=== PATIENT | female | born 1960 | race Caucasian/White ===

== ENCOUNTER 2022-03-09 08:40 | Outpatient (CLI) | payer BC, SELFPAY ==
--- NOTE | 2022-03-09 10:02 | W.ANESCHARGE ---
Anesthesia Charges Start Date/Time Anesthesia Start Date: 03/09/22 Anesthesia Start Time: 09:30 Stop Date/Time Anesthesia Stop Date: 03/09/22 Anesthesia Stop Time: 09:58 Summary Emergency: No
--- NOTE | 2022-03-09 10:22 | W.ANESCHARGE ---
Anesthesia Charges Start Date/Time Anesthesia Start Date: 03/09/22 Anesthesia Start Time: 09:30 Stop Date/Time Anesthesia Stop Date: 03/09/22 Anesthesia Stop Time: 09:58 Summary Emergency: No
== END 2022-03-09 08:41 | disposition home or self-care (01) ==
LOC: OP CLINIC 08:42
PROVIDERS: PCP Family Medicine; Visit Provider Internal Medicine Gastroenterology
DX: Z12.11 Encounter for screening for malignant neoplasm of colon (principal); K63.5 Polyp of colon; Q43.8 Other specified congenital malformations of intestine; Z83.71 Family history of colonic polyps; Z86.010 Personal history of colon polyps
CPT/HCPCS: 00811; 45380; 45385; 88305; J2704

== ENCOUNTER 2022-05-07 08:22 | Inpatient (IN) | payer BC, SELFPAY ==
[2022-05-07] VITALS (33 sets, daily range): BP systolic 100–128; BP diastolic 57–85; PULSE 79–102; RESP 12–98; TEMP 36.4–37.1; O2SAT 92–99; BMI 40.1
[2022-05-07] MEDS: SODIUM CHLORIDE 0.9 % (FLUSH) 10 ML SYRINGE IVF (09:00)
[2022-05-07] MEDS: LACTATED RINGERS 1000 ML 1,000 ML 100 ML IV ×2 (09:00→19:30)
[2022-05-07 09:10] LABS: Hemoglobin* 14.2 gm/dL (12.0-16.0)
[2022-05-07 09:32] LABS: SARS PCR* Negative SARS-CoV-2 (Negative)
[2022-05-07] MEDS: SCOPOLAMINE 1 MG/3 DAY PATCH 1 PATCH TRANSDERMA (09:40)
[2022-05-07 09:47] LABS: Creatinine* 0.8 mg/dL (0.5-1.5); Est. Creatinine Clearance* 53.16; Estimated Glomerular Filt Rate 84 ml/min
--- NOTE | 2022-05-07 14:00 | W.ANESCHARGE ---
Anesthesia Charges Start Date/Time Anesthesia Start Date: 05/07/22 Anesthesia Start Time: 10:18 Stop Date/Time Anesthesia Stop Date: 05/07/22 Anesthesia Stop Time: 15:05 Summary Emergency: No
--- NOTE | 2022-05-07 15:02 | PM.GYNPRHY ---
Procedure Type of Hysterectomy: Total Laparoscopic Pre-op/Post-op diagnoses: Pre-Op/Post-Op Diagnoses Operation Date: 05/07/22 10:00 <No data on this case meets the specified criteria> Procedure: Procedures Operation Date: 05/07/22 10:00 Actual Procedure Side Surgeon p Laparoscopic hysterectomy, bilateral salpingo-oopherectomy, Cystoscopy Key Guaman MD s Excision of Lesion, mole, left labia Key Guaman MD Handstitching Machine Collar Feller: Lizzie Yarbrough Estimated blood loss (mL): 50 Anesthesia type: General Complications: none Fluids: crystalloid Urine output (mL): 200 Specimen: uterus, left tube & ovary, right tube & ovary and other (Left labial mole ) Narrative: DATE: 05/07/2022 Consent reviewed with the patient in preop: I reviewed that I would recommend doing a total laparoscopic hysterectomy with bilateral salpingo-oophorectomy in her case given her postmenopausal status. I reviewed how a total laparoscopic hysterectomy and bilateral salpingectomy are performed. Risks associated with this procedure include: Hemorrhage to the point of requiring transfusion less than 1%, infection of incisions, vaginal cuff or abdomen 1%, risk of injury to organs that are adjacent to the uterus such as bladder, bowel, blood vessels, nerves or ureters 1%. She would not require medroxyprogesterone as part of hormone therapy after hysterectomy as there would be no need for endometrial protection. I also reviewed her increased risk of needing an open hysterectomy given her extensive surgical history. I reviewed activity restrictions post surgery: No lifting anything greater than 20 lb for at least 2 weeks, walking and walking up and down stairs safe starting postop day 1., no more strenuous activity than walking for at least the 1st 2 weeks, no driving while taking narcotic pain medication approximately 1 week postop, nothing vaginally for 6 weeks postop: No intercourse or tampons. We discussed with Anesthesia team about slow inflation of the abdomen given her history of cardiac arrest during a knee replacement surgery. PREOPERATIVE DIAGNOSIS: 61-year-old with abnormal uterine bleeding, pelvic pain and intrauterine polyp POSTOPERATIVE DIAGNOSIS: Same with the additional findings of fibroid uterus NAME OF PROCEDURE: Total abdominal hysterectomy. Bilateral salpingo-oopherectomy, cystoscopy, and left labial mole removal. SURGEON: Key Guaman MD INDUSTRIAL PHOTOGRAPHER: Lizzie Yarbrough MD. ANESTHESIA: General endotracheal. Local COMPLICATIONS: None ESTIMATED BLOOD LOSS: 50 ml URINE OUTPUT: 200 mL clear urine at the end of the procedure IV FLUID: 1.5 mL DRAINS: Rivera to gravity. Specimen: Bilateral fallopian tube and ovaries and uterus. Left labial mole. Uterus weight: pending pathology FINDINGS: Pelvic exam: Mons normal, clitoris normal, urethral meatus normal. Left Labia minora and majora normal in appearance. Right labia major with 1.5 cauliflower mole at inferior aspect near buttock. Labia minora normal. Perineum and anus normal appearance. Vaginal introitus normal appearance. Vaginal pink and well rugated with scant white discharge. Cervix pink and without lesion. Bimanual exam reveals at least one posterior fibroid uterus, mobile, anteverted. 10 week size uterus. No palpable adnexal masses or tenderness. Laparoscopic findings: Minimal filmy adhesions of descending colon to left sidewall. Fibroid uterus. 3 fibroids noted protruding from left broad ligament anteriorly. 1 large fibroid at uterine fundus. Another large fibroid on posterior aspect of uterus close to the broad ligament. Normal-appearing fallopian tubes and ovaries bilaterally. Liver appeared normal. Procedure: Tesha was taken to the operating room where general anesthetic was found to be adequate. She was placed in the dorsal lithotomy position and an exam under anesthesia was performed with findings stated above. She was then prepped and draped in a normal sterile manner. A Rivera catheter was placed. A bivalve speculum was placed in the vaginal canal. A long Allis clamp was placed on the anterior lip of the cervix, in the uterus sounded to 7 cm. A medium VCare uterine manipulator was then placed. The Allis clamp and speculum were removed from the cervix. Attention was then turned to performing the laparoscopic portion of the procedure. All incisions were infiltrated with 0.25% bupivacaine prior to incising the skin. A vertical, infraumbilical 1 cm incision was made. An 5mm trocar was then placed under direct visualization. The abdomen was then insufflated with CO2 gas to a pressure of 15 mm of mercury under slow flow. Three additional port sites were created. The 1st was in the patient's left lower quadrant, just superior medial to the left ASIS. The 2nd was a hand's breath superior to and slightly medial to the 1st. The 3rd was in the patient's right lower quadrant, just superior medial to the right ASIS. The balloon on each of the 4 ports was inflated, holding each in place.The trocar in the RLQ = 5mm, LLq = 11mm, Left midport = 5 mm. These were placed under direct visualization. Attention was then turned to performing the hysterectomy and bilateral salpingo-oophorectomy. The left fallopian tube and ovary was grasped and removed with sequential pedicles using the dissecting, ligasure blunt tip dissecting forceps until it was free from the infundibulopelvic ligament. The left side of the hysterectomy was performed using the ligasure dissecting forceps. The 1st pedicles were starting with the broad ligament that was cauterized and and bisected. Then sequential pedicles were made through the broad ligament. The anterior leaf of the broad ligament was then divided and sequential pedicles carried down to the level of the VCare cup and a bladder flap was made. The uterine vessels were then skeletonized. The uterine vessels were then cauterized and divided. Then excess tissue was cleared over the top of the VCare cup using the dissecting forceps. The right salpingo-oophorectomy and right side of the hysterectomy were then performed in a similar manner. The Ligasure Valleylab pen with the spatula attachment was then used to perform the colpotomy incising around the VCare cup. The uterus was removed and the fundus placed in the vaginal canal to maintain insufflation. The vaginal cuff was then reapproximated using 0 vicryl figure of 8. Three were placed laparoscopically. All the pedicles and vaginal cuff were then closely visualized and hemostasis obtained with bipolar cautery using the ligasure dissecting forceps or the Valleylab pen with the spatula. The the uterus was removed from the vaginal canal and sent to pathology. After assessment of vaginal cuff, 2 extra figure of 8 were placed vaginally on bilateral angles for reinforcement. The Rivera catheter was briefly removed. A diagnostic cystoscopy was performed using normal saline as the insufflation medium. The dome of the bladder was noted to be without injury and no evidence of any sutures from the vaginal cuff causing injury. Small amount of bruising at base of bladder. Normal urine flow was noted through both ureteral orifices. Fluorescein IV was used to visualize the urine more easily. The Rivera catheter was then replaced. Attention was then returned to the abdomen where hemostasis was verified again after vaginal cuff stitches were placed. The CO2 pressure decreased to 8mmHG and excellent hemostasis verified. The fascia in the LLQ incision was approximated with 0-Vicryl suture using the Noe Schultz fascial closure device. This was closed under direct visualization with the laparoscope. All trocars were removed under direct visualization. CO2 gas was allowed to escape the infraumbilical port prior to its removal. Removal of labial mole incision done by Dr. Yarbrough without scalpel to the base of the mole. Skin reappropriated with 4-0 monocryl without issues. All skin incisions were re-approximated using 4-0 Monocryl in a running subcuticular manner, Exophin skin adhesive gel and adhesive bandages placed. The patient tolerated this procedure well. Sponge, lap and instrument counts were correct x2 at the end of the procedure and the patient was taken to the recovery area in stable condition. The patient received 2gm IV ancef prior to the start of the procedure.
--- NOTE | 2022-05-07 15:12 | W.ANESCHARGE ---
Anesthesia Charges Start Date/Time Anesthesia Start Date: 05/07/22 Anesthesia Start Time: 10:18 Stop Date/Time Anesthesia Stop Date: 05/07/22 Anesthesia Stop Time: 15:05 Summary Emergency: No
--- NOTE | 2022-05-07 15:15 | W.PM.NB ---
Nerve Block Nerve Block Time Seen by Provider: 10:25 Date Seen: 05/07/22 Type of block requested by surgeon for post-operative analgesia: TAP Side: bilateral Time out performed: Yes Verification of patient name: Yes Verification of date of : Yes Site marking: site marked Name of person performing procedure: Juno Continuous monitoring Was continuous monitoring of O2 sat, B/P, cardiac catheterization technician, recorded every 15 minutes?: Yes Procedure Checklist: sterile prep, needles and gloves Ultrasound guided. Images saved: Yes Medications given in 5ml increments after negative aspiration: Marcaine %: 0.25 mL: 30 Needle gauge: 20 and Exparel mL: 10 Patient tolerated procedure well: Yes Additional comments: Needle noted adjacent to nerve Block Charges Block Charge (with Pro Fee): TAP Bilateral Use of Ultrasound Machine for Block: Yes- US Guidance/pain block
[2022-05-07] MEDS: HYDROmorphone 0.5 mg/0.5 ml inj IVP ×3 (15:33→22:51)
[2022-05-07] MEDS: diphenhydrAMINE 50 MG/ML inj 25 MG IVP ×2 (16:40→20:46)
[2022-05-07] MEDS: SUMAtriptan succinate 50 MG TABLET 100 MG PO (17:37)
[2022-05-07 18:26] LABS: Hemoglobin* 13.1 gm/dL (12.0-16.0)
[2022-05-07] MEDS: fentaNYL 100 MCG/2 ML inj 50 MCG IVP (19:35)
--- NOTE | 2022-05-07 19:47 | PM.OBLDTN ---
OB - Triage/Final Diagnosis Visit Information Time Seen by Provider: 19:48 Date Seen: 05/07/22 Date of evaluation: 05/07/22 Narrative: Tesha is a [] year old [] para [] at [] weeks gestation by [], who presents with []. [] Evaluation Laboratory results: Laboratory Tests 05/07/22 05/07/22 05/07/22 Range/Units 18:22 09:03 09:03 Hgb 13.1 (12.0-16.0) gm/dL Creatinine 0.8 (0.5-1.5) mg/dL Estimated Creat Clear 53.16 Estimated GFR 84 ml/min SARS-CoV-2 (PCR) (Negative) Blood Type O Negative Antibody Screen NEGATIVE 05/07/22 05/07/22 Range/Units 09:03 08:25 Hgb 14.2 (12.0-16.0) gm/dL Creatinine (0.5-1.5) mg/dL Estimated Creat Clear Estimated GFR ml/min SARS-CoV-2 (PCR) Negative SARS-CoV-2 (Negative) Blood Type Antibody Screen Vital signs: Vital Signs - 24 hr 05/07/22 09:14 05/07/22 15:03 05/07/22 15:12 Temperature 97.9 F 98.8 F 97.6 F Pulse Rate 102 H 91 84 Pulse Rate [Pulse Oximeter] Respiratory Rate 18 14 12 Blood Pressure 122/85 103/58 L Blood Pressure [Left Arm] Pulse Oximetry 95 95 98 Oxygen Delivery Method Room Air [place] Nasal Cannula 05/07/22 15:02 05/07/22 15:04 05/07/22 15:06 Temperature Pulse Rate 98 87 83 Pulse Rate [Pulse Oximeter] Respiratory Rate Blood Pressure Blood Pressure [Left Arm] Pulse Oximetry 95 95 97 Oxygen Delivery Method 05/07/22 15:07 05/07/22 15:09 05/07/22 15:10 Temperature Pulse Rate 82 80 85 Pulse Rate [Pulse Oximeter] Respiratory Rate Blood Pressure 112/57 L Blood Pressure [Left Arm] Pulse Oximetry 97 98 98 Oxygen Delivery Method 05/07/22 15:11 05/07/22 15:13 05/07/22 15:34 Temperature 98.1 F Pulse Rate 79 79 Pulse Rate [Pulse Oximeter] Respiratory Rate Blood Pressure 103/58 L Blood Pressure [Left Arm] Pulse Oximetry 98 98 Oxygen Delivery Method 05/07/22 15:14 05/07/22 15:17 05/07/22 15:17 Temperature Pulse Rate 88 91 82 Pulse Rate [Pulse Oximeter] Respiratory Rate Blood Pressure 122/67 Blood Pressure [Left Arm] Pulse Oximetry 98 98 98 Oxygen Delivery Method 05/07/22 15:18 05/07/22 15:21 05/07/22 15:21 Temperature Pulse Rate 88 92 94 Pulse Rate [Pulse Oximeter] Respiratory Rate Blood Pressure 127/59 L Blood Pressure [Left Arm] Pulse Oximetry 98 99 98 Oxygen Delivery Method 05/07/22 15:22 05/07/22 15:25 05/07/22 15:26 Temperature Pulse Rate 81 85 84 Pulse Rate [Pulse Oximeter] Respiratory Rate Blood Pressure 112/57 L Blood Pressure [Left Arm] Pulse Oximetry 99 98 96 Oxygen Delivery Method 05/07/22 15:27 05/07/22 15:29 05/07/22 15:30 Temperature Pulse Rate 93 83 93 Pulse Rate [Pulse Oximeter] Respiratory Rate Blood Pressure Blood Pressure [Left Arm] Pulse Oximetry 93 95 94 Oxygen Delivery Method 05/07/22 15:31 05/07/22 15:33 05/07/22 15:34 Temperature Pulse Rate 89 87 87 Pulse Rate [Pulse Oximeter] Respiratory Rate Blood Pressure 120/61 Blood Pressure [Left Arm] Pulse Oximetry 95 94 96 Oxygen Delivery Method 05/07/22 15:52 05/07/22 16:16 05/07/22 16:18 Temperature 98.2 F 98.2 F 98.2 F Pulse Rate 87 Pulse Rate [Pulse Oximeter] 88 88 Respiratory Rate 14 14 14 Blood Pressure Blood Pressure [Left Arm] 106/71 106/71 106/71 Pulse Oximetry 94 94 Oxygen Delivery Method Room Air Room Air Room Air 05/07/22 16:07 05/07/22 16:22 05/07/22 16:37 Temperature 98.2 F 98.0 F Pulse Rate Pulse Rate [Pulse Oximeter] 79 84 86 Respiratory Rate 12 14 98 H Blood Pressure Blood Pressure [Left Arm] 108/70 106/71 118/79 Pulse Oximetry 97 92 92 Oxygen Delivery Method Room Air Room Air Room Air 05/07/22 17:07 05/07/22 17:38 Temperature 98.0 F 98.1 F Pulse Rate Pulse Rate [Pulse Oximeter] 86 79 Respiratory Rate 16 16 Blood Pressure Blood Pressure [Left Arm] 116/75 100/66 Pulse Oximetry 95 96 Oxygen Delivery Method Room Air Room Air
[2022-05-08] MEDS: HYDROmorphone 2 MG TABLET PO ×3 (03:13→13:06)
[2022-05-08 04:00] VITALS: BP 111/70; PULSE 104; RESP 16; TEMP 36.7; O2SAT 95
[2022-05-08] MEDS: diphenhydrAMINE 50 MG/ML inj 25 MG IVP ×2 (06:33→13:05)
[2022-05-08] MEDS: fentaNYL 100 MCG/2 ML inj 50 MCG IVP (06:34)
[2022-05-08] MEDS: SODIUM CHLORIDE 0.9 % (FLUSH) 10 ML SYRINGE IVF (06:49)
[2022-05-08] MEDS: METOPROLOL SUCCINATE (XL) 50 MG TAB PO (08:14)
[2022-05-08] MEDS: DULOXETINE HCL 20 MG CAPSULE DR PO (08:15)
[2022-05-08 08:22] VITALS: BP 105/62; PULSE 101; RESP 20; TEMP 37.1; O2SAT 92
[2022-05-08] MEDS: ACETAMINOPHEN 325 MG TABLET 650 MG PO ×3 (09:01→21:05)
[2022-05-08] MEDS: SUMAtriptan succinate 50 MG TABLET 100 MG PO (09:23)
[2022-05-08] MEDS: IBUPROFEN 200 MG TABLET 800 MG PO ×3 (10:23→23:18)
[2022-05-08 12:52] VITALS: BP 105/65; PULSE 92; RESP 20; TEMP 37.1; O2SAT 95
--- NOTE | 2022-05-08 15:45 | PM.GYNPNPO ---
BOX [employer]ING [employer]ER - A/P Assessment and plan (1) Postmenopausal bleeding: Problem details: S/p EMBx on 02/10/2022: Endocervical polyp. Negative for hyperplasia, atypia, and malignancy Status: Acute (2) S/P total hysterectomy and bilateral salpingo-oophorectomy: Status: Acute Plan Postoperative Review: - Admitted for: s/p surgery - Surgical procedure: Total laparoscopic abdominal hysterectomy.? Bilateral salpingo-oophorectomy, cystoscopy, and left labial mole removal.? - Skin incision: 4 laparoscopic port sites - Closure: sutures - Estimated blood loss: 50 mL - Intraoperative Complications: none - Urine output: adequate. Voiding several times without christianson cath - Preop Hgb: 14.2 - Postop Hgb: 13.1 Postoperative care: - Diet: Advance as tolerated - Fluid: Encourage oral intake - Activity: Encourage ambulation due to prevention of ileus. Patient had hypoactive bowel sounds.Incentive spirometry - Pain: Ibuprofen, Tylenol, gabapentin, and Dilaudid - DVT prophylaxis: SCDs when not ambulating Dispo: Patient is POD#1. Need the following milestones: ambulating more. Patient is fatigued today and desires to stay another night as she was struggling with pain control today. We discussed importance of ambulation to decrease ileus and postop pain, especially since she's had narcotics. Anticipate discharge POD#2. Postoperative Procedures: Procedures Operation Date: 05/07/22 10:00 Actual Procedure Side Surgeon p Laparoscopic hysterectomy, bilateral salpingo-oopherectomy, Cystoscopy Key Guaman MD s Excision of Lesion, mole, left labia Key Guaman MD Postoperative day: 1 Time Spent With Patient Time: Total time spent is greater than 50% in coordination of care (as documented) at patient's floor/unit and/or counseling patient: Time with patient: less than 15 minutes [employer]OX [employer]ING [employer]- PN:Subj Post-Op Subjective Time Seen by Provider: 08:00 Date Seen: 05/08/22 Post Operative Details: Post-operative day number 1: status post total laparoscopic abdominal hysterectomy, bilateral salpingo-oopherectomy, cystoscopy, and left labial mole removal.? Overnight patient had increased pain. Her pain was not well controlled on oral pain medications. She need IV dilaudid x3 overnight along with her PO regimen. Her pain is localized to left lower quadrant port (the 11 mm port). Improved with ice pack. She is tolerating a regular diet. She has passed flatus. She is not yet ambulating without difficulty. Vaginal bleeding is scant. She is urinating without a christianson. Patient denies chest pain, SOB, n/v, or dizziness. [employer]ING [employer]KER-PN: Obj Exam Physical Exam: Vital signs: Temp Pulse Resp BP Pulse Ox O2 Del Method 98.8 F 92 20 105/65 95 05/08/22 12:52 05/08/22 12:52 05/08/22 12:52 05/08/22 12:52 05/08/22 12:52 05/08/22 12:52 Narrative: VITAL SIGNS: wnl GENERAL: Pleasant woman in no acute distress. PSYCHIATRIC: Alert and oriented x3. Normal speech pattern and affect. HEART: Regular rate and rhythm. LUNGS: Clear to auscultation bilaterally. ABDOMEN: Soft, appropriately tender (most prominent at LLQ port site), no guarding and nondistended with hypoactive bowel sounds throughout. INCISION(S): All clean, dry and intact. The skin adhesive gel is partially removed. No evidence of erythema, induration, skin separation or hernia. PELVIC: Deferred. EXTREMITIES: Without cyanosis, clubbing, or edema. NEUROLOGIC: Grossly intact Urinary Catheter Management: Christianson: Cath placed during this visit: yes Urethral indwelling: No Insertion date: 05/07/22 Insertion time: 10:40 [employer]ING [employer]ER - PN: Obj Data Labs Labs: Laboratory Results - last 24 hr 05/07/22 18:22 Hgb 13.1
[2022-05-08 16:55] VITALS: BP 97/66; PULSE 71; RESP 18; TEMP 36.7; O2SAT 92
[2022-05-08 17:19] VITALS: PULSE 71; RESP 18
[2022-05-08 21:07] VITALS: BP 99/63; PULSE 79; RESP 16; TEMP 37; O2SAT 91
[2022-05-09 01:02] VITALS: BP 100/65; PULSE 69; PULSE 75; RESP 16; TEMP 37; O2SAT 95
[2022-05-09] MEDS: ACETAMINOPHEN 325 MG TABLET 650 MG PO ×2 (01:04→07:38)
[2022-05-09] MEDS: IBUPROFEN 200 MG TABLET 800 MG PO (05:44)
[2022-05-09 05:48] VITALS: BP 116/72; PULSE 69; RESP 16; TEMP 37; O2SAT 95
[2022-05-09] MEDS: DULOXETINE HCL 20 MG CAPSULE DR PO (07:38)
[2022-05-09] MEDS: METOPROLOL SUCCINATE (XL) 50 MG TAB PO (07:40)
[2022-05-09] MEDS: MEDROXYPROGESTERONE 5 MG TABLET 10 MG PO (07:40)
[2022-05-09 07:44] VITALS: PULSE 69; RESP 16
[2022-05-09 07:47] VITALS: BP 116/75; PULSE 70; RESP 16; TEMP 36.4; O2SAT 94
--- NOTE | 2022-05-09 10:00 | P.DS_ITS ---
DS: Providers Provider Date Seen: 05/09/22 Date of admission: 05/07/22 08:22 Primary care physician: Abhilash Parker MD Admitting Clinician: Key Guaman MD Attending Physician on discharge: Maira Veronica MD DS: Diagnosis Discharge Diagnosis (1) S/P total hysterectomy and bilateral salpingo-oophorectomy: Status: Acute (2) Uterine fibroid: Status: Acute Problem details: Worsening pelvic pain and pressure [employer]ENER-Discharge Summary Hospital Course Hospital Course Narrative: Hospital Course: Tesha was admitted to the hospital on 05/07/2022 for a scheduled total laparoscopic hysterectomy, bilateral salpingo oophorectomy and diagnostic cystoscopy. Her surgery was uncomplicated. Her postoperative course was complicated by difficulty with pain control. By postoperative day 2, she was tolerating a regular diet, ambulating with some difficulty due to pain, passing flatus and pain was well controlled with oral pain medications. She would like to be discharged home today. Labs: Preoperative hemoglobin 14.2, postoperative hemoglobin 13.1. Objective: General: Alert and oriented x3. Pleasant, woman in no acute distress. Vital signs: See EMR. Heart: Regular rate and rhythm without gallop, rub or murmur. Chest: Clear to auscultation bilaterally. Abdomen: Soft, nontender, nondistended with normal bowel sounds throughout. No CVA or flank tenderness. Incision(s): Clean, dry and intact w/ sutures and skin adhesive. Pelvic: Minimal vaginal bleeding, remainder of pelvic exam deferred. Extremities: No pain, edema, cyanosis or clubbing. Assessment: 61-year-old postoperative day to from a [facility]/BSO/diagnostic cystoscopy doing well. Plan: 1. Discharge home today. 2. Activity restrictions reviewed with the patient. 3. Return to clinic to see Dr. Guaman for a postoperative visit in 2-3 weeks. Time Spent with Patient Time attestation: Total time spent providing and/or coordinating discharge services: [employer]ENER - Exam Physical Exam: Vital signs: Temp Pulse Resp BP Pulse Ox O2 Del Method 97.6 F 70 16 116/75 94 05/09/22 07:47 05/09/22 07:47 05/09/22 07:47 05/09/22 07:47 05/09/22 07:47 05/09/22 07:47 J[employer]ENER - DS: Data Procedures Procedures: Procedures Operation Date: 05/07/22 10:00 Actual Procedure Side Surgeon p Laparoscopic hysterectomy, bilateral salpingo-oopherectomy, Cystoscopy Key Guaman MD s Excision of Lesion, mole, left labia Key Guaman MD Complications: none Discharge Plan Discharge Disposition: Home, Self-Care Date of Admission: 05/07/22 08:22 Attending Provider on Discharge[facility] Primary Care Provider: Abhilash Parker Condition: Stable Anticipated Discharge Date/Time: 05/09/22 12:00 Discharge Medications: New ibuprofen 800 mg tablet 800 mg PO Q6H PRN (Reason: pain) Qty: 60 2RF acetaminophen [Tylenol Extra Strength] 500 mg tablet 500 mg PO Q6H PRNQty: 60 1RF hydromorphone [Dilaudid] 2 mg tablet 2 mg PO Q6H PRN (Reason: pain) Qty: 20 0RF Rx Instructions: Postop pain simethicone [Gas Relief (simethicone)] 80 mg tablet,chewable 80 mg PO TID-QID PRN (Reason: abdominal distention) Qty: 60 1RF senna 8.6 mg capsule 8.6 mg PO DAILY Qty: 30 0RF Continued duloxetine 20 mg capsule,delayed release(DR/EC) 20 mg PO DAILY meloxicam 15 mg tablet PO DAILY sennosides 8.6 mg tablet 8.6 mg PO sumatriptan succinate 100 mg tablet 100 mg PO ONCE estradiol 0.075 mg/24 hr patch semiweekly 1 patch transdermal 2XW Rx Instructions: apply 1 patch for 3 days alternating with 1 patch for 4 days each week for 3 wks per 4-wk cycle cholecalciferol (vitamin D3) 125 mcg (5,000 unit) capsule 125 mcg PO QDAY diphenhydramine-acetaminophen 25-500 mg capsule PO .hs vitamin B complex [B Complex-Vitamin B12] Tablet 1 tab PO QDAY fish oil-dha-epa 1,200-144-216 mg capsule PO DAILY Rx Instructions: 3,600 mg fish oil ondansetron 4 mg tablet,disintegrating 4 mg PO Q8H metoprolol succinate 50 mg tablet extended release 24 hr 50 mg PO Q24H omeprazole 40 mg capsule,delayed release(DR/EC) 40 mg PO DAILY Discontinued omeprazole 20 mg tablet,delayed release (DR/EC) PO DAILY tramadol 50 mg tablet 50 mg PO PRN Label Comments: patient states that this is the only med for this that doesn't give her reaction. medroxyprogesterone 10 mg tablet 10 mg PO QDAY diphenhydramine-acetaminophen 12.5-500 mg tablet 1 tab PO Q6H PRN Discharge Orders: Discharge Order (Routine); Ordered 05/09/22 Ordered By: Maira Veronica Patient Education: Laparoscopic Hysterectomy (DC) Additional Instructions: Discharge instructions were reviewed with the patient including signs and symptoms of infection and home going medications ACTIVITY RESTRICTIONS Lifting Restriction: 20 pounds for 4 weeks No not submerge incision under water X 2 weeks? Nothing vaginally for 6 weeks: no tampons or intercourse Do not drive while taking narcotic pain medication(s): 7-10 days Off Work: 3-4 weeks Strenuous, core or high-impact exercise: None for 4 weeks NO restriction on walking or walking up and down stairs. Symptoms to report to doctor: * Bright red bleeding that requires a panty liner or more * Pain not relieved by prescribed medication * Fever above 100.4 degrees Fahrenheit * A foul vaginal odor * Difficulty in emotions, mood, and functions * Decrease in urination or painful, frequent urinating * Chest pain * Shortness of breath * Tenderness or pain with redness and/swelling in the calf(s) of your leg * Redness, drainage or skin separation of any incision FOLLOW-UP VISIT FOR POSTOP CHECK With Dr. Guaman in about 2 weeks: already scheduled on 05/22/22. Activity Detail: See above Discharge Diet: Regular Follow Up Appointments: Abhilash Parker MD [Primary Care Provider] - Key Guaman MD [Staff Physician] - Forms: [employer] Info Instructions
[2022-05-09] MEDS: HYDROmorphone 2 MG TABLET PO (10:52)
== END 2022-05-09 10:15 | disposition home or self-care (01) | DRG 519 ==
PROVIDERS: Admitting Provider Obstetrics & Gynecology; PCP Family Medicine; Visit Provider Obstetrics & Gynecology
PROC: 0UT94ZZ Resection of Uterus, Percutaneous Endoscopic Approach (ICD-10-PCS; principal; 2022-05-07 10:00)
PROC: 0UT90ZZ Resection of Uterus, Open Approach (ICD-10-PCS; 2022-05-07 10:00)
DX: D25.9 Leiomyoma of uterus, unspecified (principal); N95.0 Postmenopausal bleeding; G89.18 Other acute postprocedural pain; R10.2 Pelvic and perineal pain; D28.0 Benign neoplasm of vulva
CPT/HCPCS: 00840; 36415; 64488; 76942; 82565; 85018; 86850; 86900; 86901; 87635; 88305; 88307; A9270; C9290; J0131; J0330; J1100; J1170; J1200; J1885; J2405; J2704; J3010; J3475; J3490; J7120